=== PATIENT | female | born 1960 | race Caucasian/White ===

== ENCOUNTER 2016-09-15 11:00 | Inpatient (IN) | payer OTHER ==
--- NOTE | ~2016-09-15 | PA ---
Unit #: [id number] #: [id number] Patient: LIDIA RANGEL [id number] [facility] [address] [place] [address] [id number] I MR#: [id number] NAME: LIDIA RANGEL ROOM: P185 Age: 55 Sex: F Admission Date: 09/15/2016 : 1960 Date of Assessment: Attending Physician: True Panda M.D. Admitting Physician: True Panda M.D. Primary Care Physician: Generic Doctor Not In System PSYCHIATRIC ASSESSMENT DATE OF SERVICE 09/15/2016. IDENTIFYING DATA Ms. Rangel is a 55-year-old, single, white female, who is a resident of [place], [place], and was transferred to us from [facility]. CHIEF COMPLAINT "I'm an alcoholic." HISTORY OF PRESENT ILLNESS Ms. Rangel is a 55-year-old white female with a history of alcohol dependence and longest sobriety of 78 days a couple of years ago, was taken to the Emergency Psychiatric Services at [facility] where she has never been in treatment before and she reports she stopped drinking, but continued taking her benzodiazepines a couple of weeks ago and now she has been drinking heavily and reports that she has been drinking for 3-1/2 years and has a history of depression, panic attacks and suicidal ideation and reports that she feels as though she is going through alcohol withdrawal and she continued to endorse suicidal ideations as well throughout the assessment and reports that she has not been drinking for 2 weeks until she relapsed a week ago and reports that she has been drinking at least 6 beers a day and reports that she sometimes drinks until she passes out, and has been drinking daily for at least 3 years and reports that she has been taking Klonopin when not drinking alcohol, but ran out of Klonopin yesterday and has been exhibiting significant tremor throughout assessment and seen to have a CIWA score of 16 indicating significant withdrawal symptoms and as such, recommendation for inpatient level of care was made. On evaluation by me, the patient reports increasing depression, anxiety, irritability, restlessness, feelings of hopelessness and helplessness, and was endorsing suicidal ideations. SUBSTANCE ABUSE HISTORY The patient reports history of alcohol dependence and reports that she has been drinking since she was 17 years old and has been drinking heavily for the last 3-1/2 years with brief periods of sobriety and also has been using Klonopin along with it and it appears that she has been prescribed those, but I was unable to find any prescribing physician. PAST PSYCHIATRIC HISTORY The patient has not had any prior inpatient or outpatient psychiatric Unit #: [id number] #: [id number] Patient: LIDIA RANGEL treatment. Review of the medical records indicate that currently she has been on Paxil and Klonopin. PAST MEDICAL HISTORY The patient's medical history is insignificant. ALLERGIES Penicillin and erythromycin. PERSONAL AND SOCIAL HISTORY A 55-year-old white female, who reports that she is single, unemployed, and lives alone and has poor social support system. MENTAL STATUS EXAMINATION Middle-aged white female, who was casually dressed with fair personal hygiene, appears to be in no acute distress or discomfort. She was awake and alert on interaction with intact orientation to time, place, and person. Her mood was anxious and depressed with a congruent affect. Her speech was slow and restricted in content. Her thought processes were disorganized with some looseness of associations and suicidal ideations. Her insight and judgment remain significantly impaired. DIAGNOSTIC IMPRESSION Psychiatric: Major depressive disorder, recurrent, moderate, without psychotic features; alcohol dependence, moderate and acute withdrawals. Medical: None. Stressors: Moderate psychosocial stressors. TREATMENT PLAN 1. The patient has presented with a history of substance abuse and mood disorder, and has been decompensating and will need inpatient hospitalization for detoxification, safety, and stabilization. We will start her on detox protocol. We will closely monitor for any worsening withdrawal symptoms. 2. Supportive therapy was provided to the patient. 3. Safe, structured, and nourishing environment will be provided. ESTIMATED LENGTH OF STAY 5 to 7 days. ABILITY TO HELP SELF Limited. WILLINGNESS TO HELP SELF The patient appears to be willing to help self. STRENGTHS 1. Communicative. 2. Cooperative. PROBLEMS 1. Chronic dysphoric symptoms. 2. Poor social support system. DISCHARGE CRITERIA This will be contingent upon the patient's ability to show resolution of Unit #: [id number] #: [id number] Patient: LIDIA RANGEL her depression and anxiety and her ability to go through detox without having any significant withdrawal symptoms and her ability to stay safe and sober, particularly after discharge from the hospital. Dictated by... Fabiola Reddy/robby TD: 09/16/2016 06:55 JOB #: [id number] PSYCHIATRIC ASSESSMENT Page 1 of 1 X True Panda MD PSYCHIATRIC ASSESSMENT
--- NOTE | ~2016-09-15 | CO ---
Unit #: [id number] #: [id number] Patient: LIDIA RIBERA [id number] [place] [address] [id number] I MR#: [id number] NAME: LIDIA RIBERA ROOM: [facility] Age: 55 Sex: F Admission Date: 09/15/2016 : 1960 Attending Physician: True Panda M.D. Primary Care Physician: Generic Doctor Not In System Consultation Date: 09/16/2016 CONSULTATION REPORT REASON FOR CONSULT Congestion and seasonal allergies. SUBJECTIVE The patient states that she typically takes Zyrtec at home for seasonal allergies and congestion. She reports that she has been out of her Zyrtec for the past 2 months. She is requesting to have it restarted while here at [facility]. OBJECTIVE The patient is a 55-year-old female who is awake, alert, in no acute distress. VITAL SIGNS: Temperature 98.9, heart rate 110, respirations 20, blood pressure 136/86. HEENT: Head is atraumatic, normocephalic. Pupils equal, round. Extraocular movements are intact. No drainage from ears or nose. NECK: Supple, trachea is midline. LUNGS: Clear. HEART: Regular rate and rhythm. SKIN: Warm, dry, intact without any unusual rashes or lesions. NEUROLOGIC: Cranial nerves II through XII intact. No focal deficits. ASSESSMENT 1. Seasonal allergies. 2. At this time will resume patient's home Zyrtec at 10 mg p.o. at night. Dictated by... Genesis PeñaRShaanNShaan for Dequan Murphy M.D. AM/fredy TD: 09/16/2016 16:35 JOB #: [id number] Unit #: [id number] #: [id number] Patient: LIDIA RIBERA CONSULTATION REPORT Page 1 of 1 X Telma Severino APRN X CONSULTATION REPORT
--- NOTE | ~2016-09-15 | PN ---
Unit #: [id number] #: [id number] Patient: LIDIA RANGEL [id number] [facility] [address] [place] [address] [id number] I MR#: [id number] NAME: LIDIA RANGEL ROOM: [facility] Age: 55 Sex: F Admission Date: 09/15/2016 : 1960 Attending Physician: True Panda M.D. Admitting Physician: True Panda M.D. Primary Care Physician: Jung Doctor Not In System [facility] PROGRESS NOTES DATE 09/16/2016 DISCUSSION Ms. Rangel is a 55-year-old white female who was seen today and chart was reviewed and case was discussed with the staff. She has been anxious, withdrawn and rather seclusive to herself and describes herself to be in distress and discomfort as she goes through detox. Meanwhile, she has been compliant with treatment recommendations and has been taking medications and tolerating them fairly well with no reported side effects. MENTAL STATUS EXAMINATION Middle-aged white female who was casually dressed with fair personal hygiene and appears to be in no acute distress or discomfort. She was awake and alert on interaction with intact orientation. Her mood was anxious with congruent affect. She denies any current suicidal or homicidal ideation and also denies any auditory or visual hallucinations. Her insight and judgement remains slightly impaired. TREATMENT PLAN 1. Will continue on current medications and treatment protocol. Will monitor her response to the medications and make further adjustments as needed. 2. Will continue to follow up. Dictated by... Fabiola Reddy/fredy TD: 09/16/2016 20:00 JOB #: [id number] Unit #: [id number] #: [id number] Patient: LIDIA RANGEL PROGRESS NOTES Page 1 of 1 X True Panda MD PROGRESS NOTE
--- NOTE | ~2016-09-15 | EKG ---
PATIENT: LIDIA RIBERA UNIT #: [id number] Ventricular Rate: 100 BPM Atrial Rate: 100 BPM P-R Interval: 144 ms QRS Duration: 62 ms Q-T Interval: 332 ms QTC Calculation(Bezet): 428 ms P [place]: 71 degrees Calculated R [place]: 85 degrees Calculated T [place]: 87 degrees Diagnosis Line: Normal sinus rhythm Diagnosis Line: Normal ECG Diagnosis Line: No previous ECGs available Diagnosis Line: Confirmed by MIRELA THOMPSON MD ([id number]) on Diagnosis Line: 09/19/2016 8:09:50 AM INTERPRETING MD: JAY BROOKS
--- NOTE | ~2016-09-15 | PN ---
Unit #: [id number] #: [id number] Patient: LIDIA RANGEL [id number] [facility] [address] [place] [address] [id number] I MR#: [id number] NAME: LIDIA RANGEL ROOM: [facility] Age: 55 Sex: F Admission Date: 09/15/2016 : 1960 Attending Physician: True Panda M.D. Admitting Physician: True Panda M.D. Primary Care Physician: Jung Doctor Not In System [facility] PROGRESS NOTES DATE 09/19/2016 DISCUSSION Ms. Rangel is a 55-year-old white female with substance abuse and mood disorder who was seen today and chart was reviewed and case was discussed with the staff. The patient has been anxious, withdrawn and rather seclusive to herself. Meanwhile, she has been cooperative with treatment recommendations. She has been taking medications and tolerating them fairly well with no reported side effects. MENTAL STATUS EXAMINATION Middle-aged white female who was casually dressed with fair personal hygiene, appears to be in no acute distress or discomfort. She was awake and alert on interaction with intact orientation. Her mood was anxious with congruent affect. She denies any suicidal or homicidal ideations. Also, denies any auditory or visual hallucinations. Her insight and judgement remains slightly impaired. TREATMENT PLAN 1. We will continue her on her current medications and treatment protocol. We will monitor her response to the medication and make further adjustments as needed. 2. We will continue to follow up. Dictated by... Fabiola Reddy/quinn TD: 09/20/2016 02:51 JOB #: [id number] Unit #: [id number] #: [id number] Patient: LIDIA RANGLE PROGRESS NOTES Page 1 of 1 X True Panda MD PROGRESS NOTE
--- NOTE | ~2016-09-15 | DS ---
Unit #: [id number] #: [id number] Patient: LIDIA RANGEL [id number] [facility] [address] [place] [address] [id number] I MR#: [id number] NAME: LIDIA RANGEL ROOM: 85 Age: 55 Sex: F Admission Date: 09/15/2016 : 1960 Discharge Date: 09/20/2016 Attending Physician: True Panda M.D. Primary Care Physician: Generic Doctor Not In System DISCHARGE SUMMARY IDENTIFYING DATA Ms. Rangel is a 55-year-old single white female, who is a resident of [place], [place], and was transferred to us from [facility]. DISCHARGE DIAGNOSES Psychiatric: Major depressive disorder, recurrent, moderate, without psychotic features; alcohol dependence, moderate and acute withdrawals. Medical: None. Stressors: Moderate psychosocial stressors. HISTORY OF PRESENT ILLNESS Please see initial psychiatric evaluation for details. PAST PSYCHIATRIC HISTORY Please see initial psychiatric evaluation for details. PAST MEDICAL HISTORY Please see initial psychiatric evaluation for details. HOSPITAL COURSE The patient was admitted to the adult chemical dependency [facility] and was oriented to the hospital environment. Routine p.r.n. medications were initiated, and she was started back on her home medications and medications were adjusted and she was closely monitored. She was taking the medications regularly and was tolerating them fairly well and was able to show a decent therapeutic response and was willing to continue treatment on an outpatient basis and as such, it was decided that she will be discharged home and will continue treatment on an outpatient basis. DISCHARGE MEDICATIONS Paxil 40 mg a day for depression. DISCHARGE CONDITION Stable. PROGNOSIS Fair . Dictated by... True Panda M.D. Unit #: [id number] #: [id number] Patient: LIDIA RANGEL IAA/modl TD: 09/20/2016 06:57 JOB #: [id number] DISCHARGE SUMMARY Page 1 of 1 X True Panda MD DISCHARGE SUMMARY
--- NOTE | ~2016-09-15 | PN ---
Unit #: [id number] #: [id number] Patient: LIDIA RANGEL [id number] [facility] [address] [place] [address] [id number] I MR#: [id number] NAME: LIDIA RANGEL ROOM: [facility] Age: 55 Sex: F Admission Date: 09/15/2016 : 1960 Attending Physician: True Panda M.D. Admitting Physician: True Panda M.D. Primary Care Physician: Jung Doctor Not In System [facility] PROGRESS NOTES DATE OF SERVICE 09/18/2016 DISCUSSION Ms. Rangel is a 55-year-old white female who was seen today. Chart was reviewed and case was discussed with the staff. She has been anxious, withdrawn, and rather seclusive to herself. Meanwhile, she has been cooperative with the treatment recommendations and has been taking the medications and tolerating them fairly well with no reported side effects. MENTAL STATUS EXAMINATION Middle-aged white female who is casually dressed with fair personal hygiene, appears to be in no acute distress or discomfort. She was awake and alert with intact orientation. Her mood is anxious with congruent affect. She denies any suicidal or homicidal ideations and also denies any auditory or visual hallucinations. Her insight and judgment remain slightly impaired. TREATMENT PLAN 1. We will continue her on her current treatment protocol. We will monitor her response and make further adjustments as needed. 2. We will continue to follow up. Dictated by... True Panda M.D. IAA/bzg TD: 09/19/2016 05:46 JOB #: [id number] [facility] PROGRESS NOTES Page 1 of 1 X True Panda MD PROGRESS NOTE
--- NOTE | ~2016-09-15 | HP ---
Unit #: [id number] #: [id number] Patient: LIDIA RIBERA [id number] [place] [address] [id number] I MR#: [id number] NAME: LIDIA RIBERA ROOM: P185 Age: 55 Sex: F Admission Date: 09/15/2016 : 1960 Attending Physician: True Panda M.D. Admitting Physician: True Panda M.D. Primary Care Physician: Generic Doctor Not In System HISTORY AND PHYSICAL HISTORY OF PRESENT ILLNESS Lidia is a 55 year old admitted to [facility] because of her polysubstance abuse which includes alcohol and benzodiazepines. PAST MEDICAL HISTORY History of polysubstance abuse PAST SURGICAL HISTORY 1. Cholecystectomy 2. T & A 3. Oral ALLERGIES Erythromycin, penicillin, tetracycline. SOCIAL HISTORY Smokes one pack per day. Drinks at least 10 beers on a daily basis. Admits to abusing benzodiazepines. FAMILY HISTORY Medically noncontributory. REVIEW OF SYSTEMS CONSTITUTIONAL: No fever or chills. HEENT: Denies any sore throat, ear pain or runny nose. CARDIOVASCULAR: Denies chest pain, irregular heart rhythm or palpitations. CHEST: Denies shortness of breath or cough. No hemoptysis. GASTROINTESTINAL: Denies nausea, vomiting, diarrhea or chronic constipation. ENDOCRINE: Denies history of increased thirst or urination. No recent significant weight loss or gain. GENITOURINARY: Denies dysuria, frequency, or hematuria. SKIN: Denies any rashes. HEMATOLOGIC: Denies history of increased bleeding or bruising. MUSCULOSKELETAL: Denies any hot, swollen joints. No generalized muscle pain. NEUROLOGIC: Denies problems with vision or speech. No frequent, severe headaches. No numbness, tingling or weakness in any extremities. Denies loss of bladder or bowel control. CURRENT MEDICATIONS Detox protocol Unit #: [id number] #: [id number] Patient: LIDIA RIBERA PHYSICAL EXAMINATION GENERAL: Alert, well-nourished, in no apparent distress. VITAL SIGNS: Blood pressure 144/86, heart rate 100, respirations 16, temperature 98.6. WEIGHT: 195 pounds. HEIGHT: 5'2". SKIN: Warm and dry without rash or lesion. HEENT: Normocephalic. TMs not viewed. Oral and nasal passages clear. Conjunctivae clear. Pupils equal, round and reactive to light and accommodation. Extraocular movements intact. NECK: Supple without lymphadenopathy or thyromegaly. HEART: Regular rate and rhythm without murmur. LUNGS: Clear. ABDOMEN: Soft, nontender. : Not done. EXTREMITIES: No evidence of cyanosis, clubbing or edema. Moves all extremities without focal deficit. NEUROLOGICAL: Grossly within normal limits. Cranial Nerves: II: Visual patel are intact. III, IV AND : Extraocular movements are intact. Pupils are equal, round and reactive to light. V: Facial sensation is grossly normal. VII: Facial movements and expression are normal. VIII: Auditory acuity grossly intact. IX, X: Uvula is midline. Phonation is normal. XI: Patient shrugs shoulders and turns head normally. XII: Tongue protrudes in the midline. Sensory and Motor Function: Sensory and motor sensation is grossly normal. Motor: moves all extremities well. Coordination: Gait is normal. Deep Tendon Reflexes: Intact. IMPRESSION Psychiatric admission RECOMMENDATIONS PSYCHIATRIC: Per psychiatrist. MEDICAL: I see no contraindications to participating in facility's activities. MEDICAL PROGNOSIS Good. MEDICAL CONDITION Stable. Dictated by... Courtney Licea PShaanAShaan-Ulises. for Fabiola Mann/quinn TD: 09/16/2016 01:59 JOB #: [id number] Unit #: [id number] #: [id number] Patient: LIDIA RIBERA HISTORY AND PHYSICAL Page 1 of 1 X Courtney Licea HISTORY AND PHYSICAL
--- NOTE | ~2016-09-15 | PN ---
Unit #: [id number] #: [id number] Patient: LIDIA RANGEL [id number] [facility] [address] [place] [address] [id number] I MR#: [id number] NAME: LIDIA RANGEL ROOM: 85 Age: 55 Sex: F Admission Date: 09/15/2016 : 1960 Attending Physician: True Panda M.D. Admitting Physician: True Panda M.D. Primary Care Physician: Generic Doctor Not In System [facility] PROGRESS NOTES DATE OF SERVICE: 09/17/2016 SUBJECTIVE Ms. Rangel is a 55-year-old middle-aged white female, who was seen today and chart discussed with the staff. She has been anxious, withdrawn, though she has been cooperative treatment recommendation and has been taking the medications and tolerating them fairly well with no reported side effects. MENTAL STATUS EXAMINATION Middle-aged white female, who was casually dressed with fair personal hygiene, appears to be in no acute distress or discomfort. She was awake and alert on interaction with intact orientation. Her mood was anxious with a congruent affect. She denies any suicidal or homicidal ideation. Her insight and judgment remain slightly impaired. TREATMENT PLAN 1. We will continue on her current treatment protocol and we will monitor her response to medication and make further adjustments as needed. 2. We will continue to follow up. Dictated by... True Panda M.D. GARCÍA/robby TD: 09/17/2016 11:40 JOB #: [id number] [facility] PROGRESS NOTES Page 1 of 1 X True Panda MD PROGRESS NOTE
[2016-09-16 09:44] LABS: BASOPHIL% 0.7 % (0-2.5); EOSINOPHIL# 0.1 X10e3 (0-0.7); EOSINOPHIL% 1.3 % (0.0-7.0); HEMATOCRIT 40.1 % (35.0-45.0); LYMPHOCYTE% 45.2 % (17.0-45.0); MEAN CELL VOLUME 97.4 FL (83-96); MEAN CORPUSCULAR HEMOGLOBIN 31.6 PG (28-34); MEAN CORPUSCULAR HGB CONC 32.5 g/dL (30-36); MONOCYTE# 0.9 X10e3 (0-1.0); MONOCYTE% 13.3 % (3.0-12.0); NEUTROPHIL# 2.6 X10e3 (1.5-7.1); NEUTROPHIL% 39.5 % (40-75); PLATELET COUNT 352 X10e3 (140-420); RED BLOOD COUNT 4.12 X10e (3.90-5.30); RED CELL DISTRIBUTION WIDTH 13.4 % (11.0-15.5); WHITE BLOOD COUNT 6.6 X10e3 (4.0-10.5)
[2016-09-16 10:00] LABS: DIFF IND NO
[2016-09-16 10:33] LABS: ALBUMIN SERUM 3.1 g/dL (3.5-5.0); BILIRUBIN,TOTAL 0.4 mg/dL (0.2-2.0); CALCIUM SERUM 8.7 mg/dL (8.4-10.2); CREATININE SERUM 0.6 mg/dL (0.6-1.4); GLOM FILT RATE Estimated 103.3 mL/min (>60); POTASSIUM 3.7 mmol/L (3.5-5.1); PROTEIN TOTAL SERUM 5.2 g/dL (6.0-8.3)
[2016-09-20 09:37] LABS: URINE APPEARANCE CLEAR; URINE BILIRUBIN NEG (NEG); URINE BLOOD NEG (NEG); URINE COLOR YELLOW; URINE GLUCOSE NEG (NEG); URINE KETONE NEG (NEG); URINE LEUKOCYTE ESTERASE TRACE (NEG); URINE NITRATE NEG (NEG); URINE PH 6.5 (5-8); URINE PROTEIN NEG (NEG); URINE SPECIFIC GRAVITY 1.005 (1.003-1.035); URINE UROBILINOGEN 0.2 MG/DL (NEG)
[2016-09-20 09:40] LABS: URBCS1 AUWI 0-2 /[HPF] (0-2); URINE BACTERIA AUWI NEG (NEGATIVE); URINE SQUAMOUS EPITHELIAL CELL NONE SEEN /[HPF]
== END 2016-09-20 11:20 | disposition hospice, home (50) | DRG 897 ==
LOC: P1E 14:16
PROVIDERS: Psychiatry & Neurology Psychiatry
PROC: HZ2ZZZZ Detoxification Services for Substance Abuse Treatment (ICD-10-PCS; principal; 2016-09-15)
DX: F10.239 Alcohol dependence with withdrawal, unspecified (principal); F33.1 Major depressive disorder, recurrent, moderate; F41.9 Anxiety disorder, unspecified; Z56.0 Unemployment, unspecified; F13.10 Sedative, hypnotic or anxiolytic abuse, uncomplicated; Z88.1 Allergy status to other antibiotic agents; Z88.0 Allergy status to penicillin; J30.2 Other seasonal allergic rhinitis
CPT/HCPCS: 80053; 81003; 84703; 85025; 86592; 93005